=== PATIENT | male | born 1980 | race Caucasian/White ===

== ENCOUNTER 2017-06-08 23:36 | Emergency (ER) | payer OTHER ==
[2017-06-08 23:50] VITALS: RESP 16; TEMP 99
--- NOTE | 2017-06-09 00:34 | C.PDOC ---
History Of Present Illness Patient brought to ED by EMS after being found outside his Grandma's house in his underwear. Patient admits to drinking ETOH. No signs of trauma or physical complaints at this time. Time Seen by Provider: 06/09/17 00:34 Chief Complaint (Nursing): Substance Abuse History Per: EMS History/Exam Limitations: intoxication Onset/Duration Of Symptoms: Hrs Current Symptoms Are (Timing): Still Present Suicide/Self Injury Attempted (Context): None Modifying Factor(s): Alcohol Severity: Mild Pain Scale Rating Of: 2 Associated Symptoms: denies: Anxiety Involuntary Hold By: None Recent travel outside of the [place]: No Past Medical History Reviewed: Historical Data, Nursing Documentation, Vital Signs Vital Signs: Last Vital Signs Temp 99.0 F 06/08/17 23:46 Pulse 110 H 06/08/17 23:46 Resp 16 06/08/17 23:46 BP 186/92 H 06/08/17 23:46 Pulse Ox 96 06/09/17 00:45 - Medical History PMH: Asthma Family History: States: No Known Family Hx - Social History Hx Tobacco Use: Yes (social) Hx Alcohol Use: Yes Hx Substance Use: Yes (pt denies) - Immunization History Hx Tetanus Toxoid Vaccination: No Hx Influenza Vaccination: No Hx Pneumococcal Vaccination: No Review Of Systems Constitutional: Negative for: Fever, Chills Gastrointestinal: Negative for: Nausea, Vomiting, Diarrhea Skin: Negative for: Rash Physical Exam - Physical Exam Appears: Non-toxic, No Acute Distress, Other (ETOH in breath) Skin: Warm, Dry Head: Normacephalic Oral Mucosa: Moist Chest: Symmetrical Cardiovascular: Rhythm Regular Respiratory: No Rales, No Rhonchi, No Wheezing Gastrointestinal/Abdominal: Soft, No Tenderness, No Guarding, No Rebound Extremity: Normal ROM, Capillary Refill (<2 seconds) Neurological/Psych: Oriented x3 ED Course And Treatment O2 Sat by Pulse Oximetry: 96 (RA) Pulse Ox Interpretation: Normal Reevaluation Time: 01:14 Reassessment Condition: Improved Disposition Counseled Patient/Family Regarding: Studies Performed, Diagnosis, Need For Followup - Disposition Referrals: [facility] [Outside] Disposition: HOME/ ROUTINE Disposition Time: 00:34 Condition: FAIR Instructions: Alcohol Intoxication (DC) Forms: [employer] (Romansh) - Clinical Impression Clinical Impression: Alcohol intoxication - Scribe Statement The provider has reviewed the documentation as recorded by the Hanane Orozco All medical record entries made by the Hanane were at my direction and personally dictated by me. I have reviewed the chart and agree that the record accurately reflects my personal performance of the history, physical exam, medical decision making, and the department course for this patient. I have also personally directed, reviewed, and agree with the discharge instructions and disposition.
[2017-06-09 01:23] VITALS: BP 130/78; PULSE 94; O2SAT 100
== END 2017-06-09 01:24 | disposition home or self-care (01) ==
LOC: C.ER 23:36
DX: F10.129 Alcohol abuse with intoxication, unspecified (principal); Y90.9 Presence of alcohol in blood, level not specified

== ENCOUNTER 2017-06-10 00:57 | Emergency (ER) | payer OTHER ==
[2017-06-10 02:10] LABS: BASO # 0.1 K/uL (0.0-0.2); BASO % 0.8 % (0.0-2.0); EOS # 0.1 K/uL (0.0-0.7); HEMOGLOBIN 13.3 g/dL (12.0-18.0); LYMPH % 15.4 % (20.0-40.0); MEAN CELL VOLUME 92.5 fL (80.0-94.0); MEAN CORPUSCULAR HEMOGLOBIN 31.4 pg (27.0-31.0); MEAN CORPUSCULAR HGB CONC 33.9 g/dL (33.0-37.0); MEAN PLATELET VOLUME 8.5 fL (7.2-11.7); MONO # 0.5 K/uL (0.0-0.8); MONO % 8.5 % (0.0-10.0); NEUT # 4.7 K/uL (1.8-7.0); NEUT % 74.3 % (50.0-75.0); RBC 4.25 Mil/uL (4.40-5.90); WHITE BLOOD COUNT 6.4 K/uL (4.8-10.8)
[2017-06-10 02:25] LABS: ALBUMIN 3.6 g/dL (3.5-5.0)
[2017-06-10 02:28] LABS: ALB/GLOB RATIO 1.2 (1.0-2.1); ALT/SGPT 41 U/L (21-72); AST/SGOT 31 U/L (17-59); BLOOD UREA NITROGEN 22 mg/dL (9-20); GFR AFRICAN-AMERICAN > 60; GFR NON-AFRICAN AMERICAN > 60
[2017-06-10 02:29] LABS: URINE BILIRUBIN NEGATIVE (NEGATIVE); URINE BLOOD NEGATIVE (NEGATIVE); URINE CLARITY Clear (Clear); URINE COLOR Yellow (YELLOW); URINE GLUCOSE (UA) NORMAL (Normal); URINE LEUKOCYTE ESTERASE NEG Leu/uL (Negative); URINE NITRATE NEGATIVE (NEGATIVE); URINE PROTEIN NEGATIVE (NEGATIVE); URINE UROBILINOGEN NORMAL mg/dL (0.2-1.0)
[2017-06-10 02:29] LABS: CALCIUM 8.3 mg/dl (8.6-10.4)
[2017-06-10 02:38] LABS: BENZODIAZEPINES, UR NEGATIVE (NEGATIVE)
[2017-06-10 02:39] LABS: BARBITURATES, UR NEGATIVE (NEGATIVE)
[2017-06-10 02:41] LABS: OPIATES, UR NEGATIVE (NEGATIVE)
[2017-06-10 02:43] LABS: PHENCYCLIDINE, UR POSITIVE (NEGATIVE)
--- NOTE | 2017-06-10 04:05 | C.PDOC ---
History Of Present Illness 36 year old male who presents to the ER anxious and shaky after smoking marijuana. Denies any physical complaints at this time. Time Seen by Provider: 06/10/17 01:41 Chief Complaint (Nursing): Substance Abuse History Per: Patient History/Exam Limitations: no limitations Onset/Duration Of Symptoms: Hrs Current Symptoms Are (Timing): Still Present Suicide/Self Injury Attempted (Context): None Modifying Factor(s): Marijuana Associated Symptoms: denies: Depression, Suicidal Thoughts, Suicidal Plan Involuntary Hold By: None Recent travel outside of the [place]: No Past Medical History Reviewed: Historical Data, Nursing Documentation, Vital Signs Vital Signs: Last Vital Signs Temp 97.9 F 06/10/17 04:21 Pulse 86 06/10/17 04:21 Resp 16 06/10/17 04:21 BP 122/82 06/10/17 04:21 Pulse Ox 100 06/10/17 04:47 - Medical History PMH: Asthma, Chronic Kidney Disease Surgical History: No Surg Hx Family History: States: Unknown Family Hx - Social History Hx Tobacco Use: Yes (social) Hx Alcohol Use: Yes Hx Substance Use: Yes (pt denies) - Immunization History Hx Tetanus Toxoid Vaccination: No Hx Influenza Vaccination: No Hx Pneumococcal Vaccination: No Review Of Systems Constitutional: Negative for: Fever, Chills Gastrointestinal: Negative for: Nausea, Vomiting, Diarrhea Neurological: Positive for: Other (Tremors) Physical Exam - Physical Exam Appears: Non-toxic, Other (Anxious) Skin: Normal Color, Warm, Dry Head: Atraumatic, Normacephalic Eye(s): bilateral: Normal Inspection, EOMI Oral Mucosa: Moist Chest: Symmetrical, No Tenderness Cardiovascular: Rhythm Regular, No Murmur Respiratory: Normal Breath Sounds, No Rales, No Rhonchi, No Wheezing Gastrointestinal/Abdominal: Soft, No Tenderness Neurological/Psych: Oriented x3, Normal Speech, Normal Cognition, Other (Tremors ) ED Course And Treatment - Laboratory Results Result Diagrams: 06/10/17 02:07 06/10/17 02:07 O2 Sat by Pulse Oximetry: 100 (Room air) Pulse Ox Interpretation: Normal Progress Note: Labs ordered; results were positive for cannabinoids and PCP. Ativan administered. On reevaluation, patient feels much better, asking to leave. VSS and is no longer shaking and is able to walk with a steady gait. Will discharge home. Disposition Counseled Patient/Family Regarding: Diagnosis, Need For Followup - Disposition Referrals: [facility] [Outside] Disposition: HOME/ ROUTINE Disposition Time: 04:04 Condition: STABLE Additional Instructions: Please follow up in clinic Return to ER if worse Instructions: Polysubstance Abuse (ED) Forms: [employer] (Lao) - Clinical Impression Clinical Impression: Substance abuse - Scribe Statement The provider has reviewed the documentation as recorded by the Scribsherif Samano All medical record entries made by the Scribe were at my direction and personally dictated by me. I have reviewed the chart and agree that the record accurately reflects my personal performance of the history, physical exam, medical decision making, and the department course for this patient. I have also personally directed, reviewed, and agree with the discharge instructions and disposition.
[2017-06-10 04:21] VITALS: BP 122/82; PULSE 86; RESP 16; TEMP 97.9
[2017-06-10 04:47] VITALS: O2SAT 100
== END 2017-06-10 04:22 | disposition home or self-care (01) ==
LOC: C.ER 00:57
DX: F19.10 Other psychoactive substance abuse, uncomplicated (principal)